=== PATIENT | male | born 1955 | race Two or more races ===

== ENCOUNTER 2022-05-09 17:48 | Emergency (ER) | payer OTHER ==
[~2022-05-09] VITALS: Ht 172.7 cm; Wt 81.6 kg
[2022-05-09] MEDS ORDERED: CLONAZEPAM0.5 MG (18:34)
[2022-05-09] MEDS ORDERED: EFFEXOR XR37.5 MG (18:34)
== END 2022-05-09 20:38 | disposition home or self-care (01) ==
LOC: ER 17:48
DX: R53.81 Other malaise (principal); J02.9 Acute pharyngitis, unspecified